=== PATIENT | female | born 1960 | race Caucasian/White ===

== ENCOUNTER 2021-09-16 12:17 | Observation (INO) | payer BC, OTHER ==
[~2021-09-16] VITALS: Ht 160 cm; Wt 59.0 kg
[~2021-09-16 12:17] MED LIST: ATELVIA35 MG PO; CRESTOR; CRESTOR10 MG PO; DIVIGEL1 GM TOP; METOPROLOL SUC100 MG PO; PROGESTERONE100 MG PO; SINGULAIR10 MG PO; Z.0.ACIPHEX20 MG PO; Z.0.LEVOTHROID50 MCG PO; Z.0.LOPRESSOR50 MG PO; Z.0.PRINIVIL10 MG PO; [UNRECOGNIZED DRUG - OTHER] PO
[2021-09-16] MEDS ORDERED: SODIUM CHLORIDE 0.9% 1000ML 1,000 ML IV STA ×2 (12:40)
[2021-09-16] MEDS ORDERED: SODIUM CHLORIDE 0.9% 1000ML 1,000 ML ONE (12:51)
[2021-09-16 13:14] LABS: BASOPHILS % 0.3 % (0.0-1.0); HEMATOCRIT 45.1 % (34.2-44.1); HEMOGLOBIN 13.9 g/dL (12.0-16.0); LYMPHOCYTES # (AUTO) 1.1 (1.0-3.2); LYMPHOCYTES % 12.6 % (18.0-39.1); MEAN CORPUSCULAR HEMOGLOBIN 25.8 pg (28-32); MEAN CORPUSCULAR HGB CONC 30.8 g/dL (31-35); MEAN CORPUSCULAR VOLUME 83.8 fL (81-99); MONOCYTES # (AUTO) 0.4 (0.2-0.8); MONOCYTES % 4.3 % (4.4-11.3); NEUTROPHILS # (AUTO) 7.5 (2.1-6.9); NEUTROPHILS % 82.5 % (38.7-80.0); PLATELET COUNT 212 x10e3/uL (140-360); RED BLOOD COUNT 5.38 x10e6/uL (3.6-5.1); RED CELL DISTRIBUTION WIDTH 16.2 % (11.7-14.4)
[2021-09-16] MEDS ORDERED: PIPERACILLIN/TAZOBACTAM 3.375 GM in SODIUM CHLORIDE 0.9% 50ML 50 ML IV STA (13:40)
[2021-09-16] MEDS ORDERED: Vancomycin IV 1 GM in SODIUM CHLORIDE 0.9% 250ML 250 ML IV STA (13:40)
[2021-09-16] MEDS ORDERED: DEXAMETHASONE SOD PHOS 10 MG/1 ML VIAL IV ONE (14:00)
[2021-09-16] MEDS ORDERED: CEFTRIAXONE 1 GM in SODIUM CHLORIDE 0.9% 50ML 50 ML IV ONE (14:00)
[2021-09-16] MEDS ORDERED: SOTROVIMAB 500 MG in SODIUM CHLORIDE 0.9% 100 ML IV ONE (14:15)
[2021-09-16 14:20] LABS: INR 1.14; PARTIAL THROMBOPLASTIN TIME 34.9 seconds (23.8-35.5); PROTHROMBIN TIME 15.5 seconds (11.9-14.5)
[2021-09-16 14:33] LABS: ALBUMIN 3.2 g/dL (3.5-5.0); ALBUMIN/GLOBULIN RATIO 1.2 (0.8-2.0); ANION GAP 13.8 mmol/L (8-16); CALCIUM 7.6 mg/dL (8.4-10.2); CREATININE, SERUM 1.14 mg/dL (0.57-1.11); POTASSIUM 3.8 mmol/L (3.5-5.1)
[2021-09-16 14:42] LABS: CREATINE KINASE MB 0.7 ng/mL (0-5.0)
[2021-09-16 14:53] LABS: CLARITY,URINE SL CLOUDY (CLEAR); COLOR,URINE YELLOW (YELLOW); KETONES,URINE TRACE (NEGATIVE); LEUKOCYTE ESTERASE ,URINE SMALL (NEGATIVE); NITRITE,URINE NEGATIVE (NEGATIVE); PROTEIN,URINE DIPSTICK 1+ (NEGATIVE); URINE UROBILINOGEN 0.2 mg/dL (0.2 - 1)
[2021-09-16 14:58] LABS: BACTERIA,URINE RARE /HPF; EPITHELIAL CELLS,URINE FEW /LPF; RBC,URINE 0-5 /HPF (0-5)
[2021-09-16] MEDS ORDERED: SODIUM CHLORIDE 0.9% 100 ML ONE (15:14)
[2021-09-16] MEDS ORDERED: LEVOFLOXACIN 750MG/D5W 150ML 150 ML IV SCH (16:00)
[2021-09-16] MEDS: SODIUM CHLORIDE 0.9% 1000ML 1,000 ML IV SCH (16:41)
[2021-09-16] MEDS ORDERED: AMLODIPINE BESYL5 MG PO (18:09)
[2021-09-16] MEDS ORDERED: LEVOTHYROXINE50 MCG PO (18:10)
[2021-09-16] MEDS ORDERED: LOSARTAN POTAS100 MG PO (18:10)
[2021-09-16] MEDS ORDERED: MONTELUKAST SOD10 MG PO (18:10)
[2021-09-16] MEDS ORDERED: CRESTOR10 MG PO (18:10)
[2021-09-16] MEDS ORDERED: LORAZEPAM 0.5 MG TAB PO ONE (19:45)
[2021-09-16 20:00] VITALS: BP 124/63
[2021-09-16] MEDS ORDERED: DEXAMETHASONE SOD PHOS 10 MG/1 ML VIAL IV SCH (21:00)
[2021-09-16 21:29] VITALS: BP 124/63
[2021-09-17 01:04] VITALS: BP 107/57
[2021-09-17] MEDS: SODIUM CHLORIDE 0.9% 1000ML 1,000 ML IV SCH ×2 (04:09→08:52)
[2021-09-17 04:59] LABS: BASOPHILS % 0.1 % (0.0-1.0); HEMATOCRIT 36.9 % (34.2-44.1); HEMOGLOBIN 11.6 g/dL (12.0-16.0); LYMPHOCYTES # (AUTO) 0.6 (1.0-3.2); LYMPHOCYTES % 6.1 % (18.0-39.1); MEAN CORPUSCULAR HEMOGLOBIN 25.8 pg (28-32); MEAN CORPUSCULAR HGB CONC 31.4 g/dL (31-35); MONOCYTES # (AUTO) 0.5 (0.2-0.8); MONOCYTES % 4.7 % (4.4-11.3); NEUTROPHILS # (AUTO) 8.5 (2.1-6.9); NEUTROPHILS % 88.6 % (38.7-80.0); PLATELET COUNT 194 x10e3/uL (140-360); RED CELL DISTRIBUTION WIDTH 16.1 % (11.7-14.4)
[2021-09-17 05:23] LABS: ALBUMIN 2.8 g/dL (3.5-5.0); ALBUMIN/GLOBULIN RATIO 1.1 (0.8-2.0); ANION GAP 11.3 mmol/L (8-16); CALCIUM 7.5 mg/dL (8.4-10.2); CREATININE, SERUM 0.78 mg/dL (0.57-1.11); POTASSIUM 4.3 mmol/L (3.5-5.1)
[2021-09-17 05:33] VITALS: BP 105/58
[2021-09-17 07:55] VITALS: BP 130/61
[2021-09-17] MEDS ORDERED: DEXAMETHASONE SOD PHOS 10 MG/1 ML VIAL IV SCH (09:00)
== END 2021-09-17 11:40 | disposition home or self-care (01) ==
LOC: ER 12:22 → INTOOBSV 15:54 → ERHOLD 15:54 → MED/SURG2 17:10
PROVIDERS: ADMIT Internal Medicine; ATTEND Internal Medicine
DX: A41.89 Other specified sepsis (principal); U07.1 COVID-19; J12.82 Pneumonia due to coronavirus disease 2019; N17.9 Acute kidney failure, unspecified; I95.89 Other hypotension; Z86.73 Personal history of transient ischemic attack (TIA), and cerebral infarction without residual deficits; E03.9 Hypothyroidism, unspecified; E78.5 Hyperlipidemia, unspecified; F41.9 Anxiety disorder, unspecified; I11.9 Hypertensive heart disease without heart failure
CPT/HCPCS: 36415 ×2; 70450; 71045; 80053 ×2; 81001; 82550; 82553; 83605; 83735; 84484; 85025 ×2; 85610; 85730; 87040; 93005; 99284; G0378 ×2; J0456 ×2; J0696; J1100 ×2; J7030 ×2; J7050 ×3; U0002